=== PATIENT | female | born 1990 | race Caucasian/White ===

== ENCOUNTER 2017-10-30 08:15 | Inpatient (IN) | END 2017-11-01 13:10 | disposition home or self-care (01) | DRG 775 ==

== ENCOUNTER 2018-03-19 02:22 | Emergency (ER) | END 2018-03-19 04:15 | disposition home or self-care (01) ==

== ENCOUNTER 2018-03-20 20:45 | Inpatient (IN) | END 2018-03-26 17:00 | disposition home or self-care (01) | DRG 440 ==

== ENCOUNTER 2019-01-07 23:15 | Inpatient (IN) | payer OTHER ==
[~2019-01-07] VITALS: Ht 152.4 cm; Wt 86.2 kg
[~2019-01-07 23:15] MED LIST: FER325 PO; LEVO500T48 PO; ONDA4TAB14 PO; PNV1TABL43 PO
[2019-01-07] MEDS ORDERED: LACTATED RINGER'S 1,000 ML IV PRN (23:36)
[2019-01-07] MEDS ORDERED: LACTATED RINGER'S 1,000 ML IV SCH (23:36)
--- NOTE | 2019-01-07 23:46 | TRIAGE ---
OB Triage Datetime Report Generated by CPN: 01/07/2019 23:45 Datetime: 01/07/2019 23:41 Time of Arrival: 01/07/2019 23:06 Arrived By: Wheelchair Arrived From: Home Chief Complaint: UC'S Movement: Present Contractions: Regular Contractions: Q5MIN PER PT Rupture of Membranes: Denies Vaginal Bleeding: None Vaginal Discharge: Denies Recent Sexual Intercouse: Denies Abdominal Trauma: Not Applicable Patient Complaints: Contractions Time Provider Notified: 01/07/2019 23:34 Provider Notified: MARCIA Initial Plan: CEFM, SVE Datetime: 01/07/2019 23:31 Vaginal Exam Dilatation (cms): 4.5 Effacement (%): 80 Station: -2 Vaginal Bleeding: None Presentation 'A': Cephalic Datetime: 01/07/2019 23:30 Maternal Assessment Level of Consciousness: Fully Conscious DTR's/Clonus: DTRs 2+; No Clonus Headache: Denies Blurred Vision: No Respiratory Effort: Unlabored; Regular Rhythm; Equal Expansion Breath Sounds, Left: Clear and Equal Breath Sounds, Right: Clear and Equal Nausea/Vomiting: Denies RUQ Epigastric Pain: Denies Pain Assessment Pain Scale: 5 Pain Presence: Intermittent Pain Type: Contraction Pain Location: Abdomen; Back Pain Goal: 2 Pain Relief Measures: Comfort Measures
[2019-01-08] MEDS ORDERED: IBUPROFEN 600 MG TAB PO PRN
[2019-01-08] MEDS ORDERED: OXYTOCIN 30 UNITS/LR 500 ML IV SCH ×2
[2019-01-08] MEDS ORDERED: AMPICILLIN 2 GM/NS (PMX) 100 ML IV ONE
[2019-01-08] MEDS ORDERED: LIDOCAINE 1% (MPF) 30 ML INJ INJ PRN
[2019-01-08] MEDS ORDERED: BUTORPHANOL 2 MG INJ IV PRN
[2019-01-08] MEDS ORDERED: CALC600T24 PO (00:13)
[2019-01-08 01:37] VITALS: Ht 152.4 cm; Wt 86.2 kg
--- NOTE | 2019-01-08 02:25 | HP ---
Date/Time of Note Date/Time of Note DATE: 01/08/19 TIME: 02:21 OB - History Hx of Present Chief Complaint: contractions Estimated Due Date: January 20, 2019 : 4 Para: 3 Spontaneous : 0 Therapeutic : 0 Care: Other ( recordas not available) Ultrasounds: Other (ultrasound in L&D) Obstetrical Complications: None Medical Complications: None Other Concerns: limited care Past Family/Social History * PMHx unremarkable PSHx x2 FHx non contributory GBS Status: Unknown OB Admission Exam Physical Exam HEENT: WNL Heart: Rhythm Normal Lungs: Clear, Equal Abdomen: WNL Extremities: Normal Reflexes: Normal Cervical Dilatation: 5cm Effacement: 75% Station: -1 Membranes: Intact Heart Rate: 120's Accelerations: Accelerations Present Decelerations: No Decelerations Varibility: Moderate Last 72 hours Lab Results CBC & BMP 01/07/19 23:50 OB Assessment/Plan Reason for admission: active labor Plan: Expectant Management DALLAS BAE MD Jan 08, 2019 02:25
--- NOTE | 2019-01-08 02:27 | LDN ---
Date/Time of Note Date/Time of Note DATE: 01/08/19 TIME: 02:26 Delivery Summary Weeks of Gestation 38 weeks Placenta Delivered: Spontaneously Meconium: none Episiotomy: No Anesthesia type: None Estimated blood loss: 100 Sponge & Needle done & correct: Yes All needle counts correct: Yes Any foreign bodies felt in the: No Infant Delivery Information Sex Infant Sex: male Apgars 1 Minute: 8 5 Minute: 9 Suctioning Nose & mouth suctioned at elie: No Delee suction performed: No Umbilical Cord Umbilical cord with: 3 Vessels Cord presentations: nuchal cord Nuchal cord present X: 1 Cord Blood was obtained: Yes Mother & Baby Disposition Disposition Mom & Baby to Maternity; Good: Yes DALLAS BAE MD Jan 08, 2019 02:27
[2019-01-08] MEDS ORDERED: AMPICILLIN 1 GM/NS (PMX) 50 ML IV SCH (04:00)
[2019-01-08 05:00] VITALS: BP 132/75; PULSE 63; RESP 18
[2019-01-08] MEDS ORDERED: LACTATED RINGER'S 1,000 ML IV* SCH (05:12)
[2019-01-08] MEDS ORDERED: MISOPROSTOL 200 MCG TAB PR PRN ×2 (05:30)
[2019-01-08] MEDS ORDERED: OXYTOCIN 30 UNITS/LR 500 ML IV PRN ×2 (05:30)
[2019-01-08] MEDS ORDERED: CARBOPROST 250 MCG INJ IM PRN ×2 (05:30)
[2019-01-08] MEDS ORDERED: BENZOCAINE 20% 56 ML SPRAY TOP PRN (05:30)
[2019-01-08] MEDS ORDERED: ACETAMINOPHEN 325 MG TAB PO PRN (05:30)
[2019-01-08] MEDS ORDERED: DIBUCAINE 1% 30 GM OINT TOP PRN (05:30)
[2019-01-08] MEDS ORDERED: METHYLERGONOVINE 0.2 MG INJ IM PRN ×2 (05:30)
[2019-01-08] MEDS ORDERED: WITCH HAZEL/GLYCERIN PAD PR PRN (05:30)
[2019-01-08 07:45] VITALS: BP 115/68; PULSE 68; RESP 16
[2019-01-08] MEDS: SENNA/DOCUSATE NA (8.6MG/50MG) TAB PO SCH ×2 (08:23→21:20)
[2019-01-08] MEDS: HYDROCODONE/APAP (5/325) TAB PO PRN ×2 (08:23→21:20)
[2019-01-08 12:00] VITALS: BP 111/71; PULSE 65; RESP 16
[2019-01-08] MEDS: IBUPROFEN 600 MG TAB PO SCH ×2 (12:29→18:10)
[2019-01-08 20:00] VITALS: BP 127/74; PULSE 59; RESP 18
[2019-01-09] MEDS: IBUPROFEN 600 MG TAB PO SCH ×4 (00:32→18:00)
[2019-01-09 04:00] VITALS: BP 109/61; RESP 17
[2019-01-09 08:30] VITALS: BP 107/79; PULSE 63; RESP 18
[2019-01-09] MEDS: SENNA/DOCUSATE NA (8.6MG/50MG) TAB PO SCH ×2 (09:00→21:00)
--- NOTE | 2019-01-09 09:47 | DS ---
Date/Time of Note Date/Time of Note home today or next day DATE: 01/09/19 TIME: 09:42 Obstetrical Discharge Record Final Diagnosis Final Diagnosis: Term delivered Other Final Diagnosis S/P vaginal delivery Vaginal Delivery Obstetrical Delivery: Spontaneous Condition on Discharge Physical Assessment Last Vitals: see nurses notes Voiding: Yes Bowel Movement: Yes Breast: Soft, non-tender, Filling Fundus: Firm Abdomen and Incision: abdomen is soft , BS are present Episiotomy: perineum is clean Calf Tenderness: No Patient Condition: Good AMAN MEREDITH MD Jan 09, 2019 09:47
--- NOTE | 2019-01-09 09:53 | PD.PPDC ---
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
[2019-01-09] MEDS ORDERED: IBUP-1542 PO (09:54)
[2019-01-09 16:00] VITALS: BP 119/82; PULSE 69; RESP 16
[2019-01-09 19:45] VITALS: BP 116/78; PULSE 63; RESP 20
[2019-01-10] MEDS: IBUPROFEN 600 MG TAB PO SCH ×3 (00:07→12:00)
[2019-01-10 03:45] VITALS: BP 122/68; PULSE 75; RESP 18
[2019-01-10 07:30] VITALS: BP 106/63; PULSE 71
[2019-01-10] MEDS ORDERED: DIPHTH/TET/ACEL PERTUSS (ADULT) 0.5 ML VIAL IM* ONE (09:00)
[2019-01-10] MEDS: SENNA/DOCUSATE NA (8.6MG/50MG) TAB PO SCH (09:00)
--- NOTE | 2019-01-11 15:15 | DELSUM ---
Delivery Summary A-C Datetime Report Generated by CPN: 01/11/2019 15:14 DELIVERY PERSONNEL Buffing Wheel Raker: Cheyenne Nayeli MATERNAL INFORMATION Delivery Anesthesia: None Medications in Delivery: Pitocin 30 units in LR Delivery QBL (ml): 162 Placenta Cultured: No Maternal Complications: Precip Labor <3hrs; Other Other Maternal Complications: Late care. LABOR SUMMARY EDC: 01/20/2019 00:00 No. Babies in Womb: 1 Attempted: Yes Labor Anesthesia: None LABOR INFORMATION Reason for Induction: Not Applicable Onset of Labor: 01/07/2019 19:00 Complete Dilatation: 01/08/2019 00:51 Oxytocin: N/A Group B Beta Strep: Done, Result Unknown Antibiotics # of Doses: 1 Antibiotics Time of Last Dose: 01/08/2019 00:00 Steroids Given: None Reason Steroids Not Administered: Not Applicable MEMBRANES Membranes Rupture Method: Spontaneous Rupture of Membranes: 01/08/2019 00:45 Length of Rupture (hr): 0.23 Amniotic Fluid Color: Clear Amniotic Fluid Amount: Moderate Amniotic Fluid Odor: None STAGES OF LABOR Stage 1 hr: 5 Stage 1 min: 51 Stage 2 hr: 0 Stage 2 min: 8 Stage 3 hr: 0 Stage 3 min: 3 Total Time in Labor hr: 6 Total Time in Labor min: 2 VAGINAL DELIVERY Episiotomy: None Laceration Extension: N/A Laceration Type: None Laceration Repair: Not Applicable Initial Vag Sponge Count: 10 Final Vag Sponge Count: 10 Initial Vag Sharps Count: 1 Final Vag Sharps Count: 1 Sponge Count Correct: Yes Sharps Count Correct: Yes BABY A INFORMATION Infant Delivery Date/Time: 01/08/2019 00:59 Method of Delivery: Vaginal Born in Route : No : Successful Forceps: N/A Vacuum Extraction: N/A Shoulder Dystocia : No SHOULDER DYSTOCIA BABY A Delivery Date/Time: 01/08/2019 00:59 PRESENTATION/POSITION BABY A Presentation: Cephalic Cephalic Presentation: Vertex Breech Presentation: N/A PLACENTA INFORMATION BABY A Placenta Delivery Time : 01/08/2019 01:02 Placenta Method of Delivery: Expressed Placenta Status: Delivered INFANT INFORMATION BABY A Gestational Age at Delivery: 38.2 Gestational Status: Early Term- 37- 38.6 Weeks Outcome : Liveborn Infant Condition : Stable Infant Sex: Male IDENTIFICATION/MEDS BABY A ID Band Number: [id number] ID Band Location: Right Leg; Left Arm Sensor Applied: Yes Sensor Number: [id number] Sensor Location : Cord Clamp Vitamin K Given : Not Given Erythromycin Given: Not Given WEIGHT/LENGTH BABY A Birthweight (gm): 3290 Weight (lb): 7 Infant Weight (oz): 4 Infant Length (in): 19.50 Infant Length (cm): 49.53 CORD INFORMATION BABY A No. Cord Vessels: 3 Nuchal Cord : N/A Nuchal Cord- Other: Body Nuchal Cord Blood Taken: Yes Infant Suction: Mouth; Nose
== END 2019-01-10 15:14 | disposition home or self-care (01) | DRG 807 ==
LOC: OBT 23:15 → L-D 23:15 → OBT 23:30 → L-D 23:30 → PP1 01-08 16:23
PROVIDERS: ADMIT Obstetrics & Gynecology; ATTEND Obstetrics & Gynecology
PROC: 4A1HXCZ Monitoring of Products of Conception, Cardiac Rate, External Approach (ICD-10-PCS; 2019-01-07)
PROC: 10E0XZZ Delivery of Products of Conception, External Approach (ICD-10-PCS; principal; 2019-01-08)
DX: O69.81X0 Labor and delivery complicated by cord around neck, without compression, not applicable or unspecified (principal); Z37.0 Single live birth; O34.219 Maternal care for unspecified type scar from previous cesarean delivery; Z3A.38 38 weeks gestation of pregnancy
CPT/HCPCS: 76815; 80307; 85025; 85610; 85730; 86592; 86850; 86900; 86901; 87340; 99464; G0463; J0290; J2590; J7120

== ENCOUNTER 2019-02-08 13:33 | Emergency (ER) | payer OTHER ==
[~2019-02-08] VITALS: Ht 152.4 cm; Wt 78.5 kg
[~2019-02-08 13:33] MED LIST changes: +CALC600T24 PO; +IBUP-1542 PO; -LEVO500T48 PO; -ONDA4TAB14 PO
[2019-02-08 13:35] VITALS: BP 149/93; PULSE 103; RESP 19; Ht 152.4 cm; Wt 78.5 kg
[2019-02-08] MEDS ORDERED: LORAZEPAM 2 MG INJ IV STA (16:10)
--- NOTE | 2019-02-08 18:30 | ERD ---
ER Documentation Chief Complaint Chief Complaint seizure episodes x 2 today , hx HPI Patient is a 28-year-old female with seizures who presents with a seizure. Please note the history and physical exam is limited secondary to the patient's recall of the event. The patient had a seizure 6 years ago. She was sleeping today and was witnessed by her boyfriend to be shaking all over. It was unknown how long the seizure lasted. She complains of headache. She does not drive. Upon review of old medical records the patient has had multiple visits to the ER for various complaints. She does not currently have a primary doctor. ROS All systems reviewed and are negative except as per history of present illness. Medications Home Meds Discontinued Reported Medications Calcium Carbonate* (Calcium Carbonate*) 600 MG Ca Tab, 600 MG PO, TAB 01/08/19 Ferrous Sulfate* (Ferrous Sulfate*) 325 Mg Tabec, 325 MG PO DAILY, TAB 01/28/15 Vit/Fe Fumarate/Fa* ( Vitamin Tablet*) 1 Tab Tablet, 1 TAB PO DAILY, TAB 01/28/15 Discontinued Scripts Ibuprofen* (Ibuprofen*) 600 Mg Tablet, 600 MG PO Q6, #60 TAB 0 Refills Prov:AMAN MEREDITH MD 01/09/19 Allergies Allergies: Coded Allergies: No Known Allergy (Unverified , 02/08/19) PMhx/Soc History of Surgery: Yes ( X2) Anesthesia Reaction: No Hx Neurological Disorder: No Hx Respiratory Disorders: No Hx Cardiac Disorders: No Hx Psychiatric Problems: No Hx Miscellaneous Medical Probl: Yes (ECLAMPSIA W/ 6 YEARS AGO) Hx Alcohol Use: No Hx Substance Use: No Hx Tobacco Use: No Smoking Status: Never smoker FmHx Family History: diabetes Physical Exam Vitals Vital Signs Date Temp Pulse Resp B/P (MAP) Pulse Ox O2 O2 Flow FiO2 Time Delivery Rate 02/08/19 99.6 103 19 149/93 95 13:35 (111) Physical Exam Const: No acute distress Head: Atraumatic Eyes: Normal Conjunctiva ENT: Normal External Ears, Nose and Mouth. Neck: Full range of motion. No meningismus. Resp: Clear to auscultation bilaterally Cardio: Regular rate and rhythm, no murmurs Abd: Soft, non tender, non distended. Normal bowel sounds Skin: No petechiae or rashes Back: No midline or flank tenderness Ext: No cyanosis, or edema Neur: Awake and alert, no seizure activity, moving all 4 extremities Psych: Normal Mood and Affect Result Diagram: 02/08/19 1633 02/08/19 1633 Results 24 hrs Laboratory Tests Test 02/08/19 16:33 White Blood Count 12.3 10^3/ul Red Blood Count 4.98 10^6/ul Hemoglobin 12.9 g/dl Hematocrit 40.6 % Mean Corpuscular Volume 81.5 fl Mean Corpuscular Hemoglobin 25.9 pg Mean Corpuscular Hemoglobin Concent 31.8 g/dl Red Cell Distribution Width 17.2 % Platelet Count 234 10^3/UL Mean Platelet Volume 11.7 fl Immature Granulocytes % 0.200 % Neutrophils % 83.2 % Lymphocytes % 13.1 % Monocytes % 3.0 % Eosinophils % 0.1 % Basophils % 0.4 % Nucleated Red Blood Cells % 0.0 /100WBC Immature Granulocytes # 0.030 10^3/ul Neutrophils # 10.2 10^3/ul Lymphocytes # 1.6 10^3/ul Monocytes # 0.4 10^3/ul Eosinophils # 0.0 10^3/ul Basophils # 0.1 10^3/ul Nucleated Red Blood Cells # 0.0 10^3/ul Sodium Level 139 mmol/L Potassium Level 3.9 mmol/L Chloride Level 104 mmol/L Carbon Dioxide Level 27 mmol/L Anion Gap 8 Blood Urea Nitrogen 9 mg/dl Creatinine 0.61 mg/dl Est Glomerular Filtrat Rate mL/min > 60 mL/min Glucose Level 108 mg/dl Calcium Level 9.5 mg/dl Current Medications Medications Dose Sig/Kieran Start Time Status Last (Trade) Ordered Route PRN Stop Time Admin Dose Reason Admin Lorazepam 1 mg ONCE STAT 02/08/19 DC 02/08/19 (Ativan) IV 16:10 17:26 02/08/19 16:11 Procedures/MDM Patient is a 28-year-old female with a history of seizures who presents with seizure. The patient was given Ativan to prevent further seizures. Laboratory studies were basically normal. I believe the risk of radiation outweigh the benefits of a CT scan of the brain. The patient will be discharged but will need to follow-up closely with a primary doctor within 24 to 48 hours. I have given a list of the local clinics as the patient does not currently have a primary doctor. She can return for any worsening symptoms. She is not . Departure Diagnosis: Primary Impression: Seizure Condition: Fair Patient Instructions: Seizure, Recurrent [Adult] Referrals: [facility] YOU HAVE RECEIVED A MEDICAL SCREENING EXAM AND THE RESULTS INDICATE THAT YOU DO NOT HAVE A CONDITION THAT REQUIRES URGENT TREATMENT IN THE EMERGENCY DEPARTMENT. FURTHER EVALUATION AND TREATMENT OF YOUR CONDITION CAN WAIT UNTIL YOU ARE SEEN IN YOUR DOCTORS OFFICE WITHIN THE NEXT 1-2 DAYS. IT IS YOUR RESPONSIBILITY TO MAKE AN APPOINTMENT FOR FOLOW-UP CARE. IF YOU HAVE A PRIMARY DOCTOR --you should call your primary doctor and schedule an appointment IF YOU DO NOT HAVE A PRIMARY DOCTOR YOU CAN CALL OUR PHYSICIAN REFERRAL HOTLINE AT IF YOU CAN NOT AFFORD TO SEE A PHYSICIAN YOU CAN CHOSE FROM THE FOLLOWING [facility] [address] [facility] [facility] [address] [facility] [facility] [address] [facility] [address] [facility]. [facility] [address] [facility]. [facility]. [address] Additional Instructions: Call your primary care doctor TOMORROW for an appointment during the next 1-2 days.See the doctor sooner or return here if your condition worsens before your appointment time. THAIS CHEN MD February 08, 2019 18:30
== END 2019-02-08 18:20 | disposition home or self-care (01) ==
LOC: E/R 13:33
DX: R56.9 Unspecified convulsions (principal); R40.2142 Coma scale, eyes open, spontaneous, at arrival to emergency department; R40.2362 Coma scale, best motor response, obeys commands, at arrival to emergency department; R40.2252 Coma scale, best verbal response, oriented, at arrival to emergency department
CPT/HCPCS: 80048; 85025; J2060; 36415; 96374

== ENCOUNTER 2019-02-08 22:24 | Inpatient (IN) | payer OTHER ==
[~2019-02-08] VITALS: Ht 152.4 cm; Wt 79.5 kg
[2019-02-08] MEDS ORDERED: LEVETIRACETAM 1000 MG (PMX) 100 ML IVPB STA (23:00)
[2019-02-08] MEDS ORDERED: ACETAMINOPHEN 325 MG TAB PO PRN ×2 (23:30)
[2019-02-08] MEDS ORDERED: ONDANSETRON 4 MG INJ IV PRN ×2 (23:30)
[2019-02-08] MEDS ORDERED: BISACODYL (EC) 5 MG TAB PO PRN (23:30)
[2019-02-08] MEDS ORDERED: LORAZEPAM 2 MG INJ IV PRN (23:30)
[2019-02-08] MEDS ORDERED: DOCUSATE SODIUM 100 MG CAP PO PRN (23:30)
--- NOTE | 2019-02-09 00:01 | ERD ---
ER Documentation Chief Complaint Chief Complaint d/c from ED c/o seizure while sleeping again HPI Patient is a 28-year-old female with seizures who presents with multiple seizures today. The patient had her fourth baby 1 month ago. She had no preeclampsia or eclampsia with that . However she had multiple seizures today. I saw her earlier for seizures in the emergency department. She says that she used to be on Keppra. She does not currently have a primary doctor. ROS All systems reviewed and are negative except as per history of present illness. Medications Home Meds Discontinued Reported Medications Calcium Carbonate* (Calcium Carbonate*) 600 MG Ca Tab, 600 MG PO, TAB 01/08/19 Ferrous Sulfate* (Ferrous Sulfate*) 325 Mg Tabec, 325 MG PO DAILY, TAB 01/28/15 Vit/Fe Fumarate/Fa* ( Vitamin Tablet*) 1 Tab Tablet, 1 TAB PO DAILY, TAB 01/28/15 Discontinued Scripts Ibuprofen* (Ibuprofen*) 600 Mg Tablet, 600 MG PO Q6, #60 TAB 0 Refills Prov:AMAN MEREDITH MD 01/09/19 Allergies Allergies: Coded Allergies: No Known Allergy (Unverified , 02/08/19) PMhx/Soc History of Surgery: Yes ( X2) Anesthesia Reaction: No Hx Neurological Disorder: No Hx Respiratory Disorders: No Hx Cardiac Disorders: No Hx Psychiatric Problems: No Hx Miscellaneous Medical Probl: Yes (SEIZURES, ECLAMPSIA W/ 6 YEARS AGO) Hx Alcohol Use: No Hx Substance Use: No Hx Tobacco Use: No Smoking Status: Never smoker FmHx Family History: diabetes Physical Exam Vitals Vital Signs Date Temp Pulse Resp B/P (MAP) Pulse Ox O2 O2 Flow FiO2 Time Delivery Rate 02/08/19 98.3 72 20 123/86 99 22:50 (98) Physical Exam Const: No acute distress Head: Atraumatic Eyes: Normal Conjunctiva ENT: Normal External Ears, Nose and Mouth. Neck: Full range of motion. No meningismus. Resp: Clear to auscultation bilaterally Cardio: Regular rate and rhythm, no murmurs Abd: Soft, non tender, non distended. Normal bowel sounds Skin: No petechiae or rashes Back: No midline or flank tenderness Ext: No leg edema bilaterally Neur: Awake and alert Psych: Normal Mood and Affect Result Diagram: 02/08/19 2307 02/08/19 2307 Results 24 hrs Laboratory Tests Test 02/08/19 23:07 White Blood Count 9.7 10^3/ul Red Blood Count 4.66 10^6/ul Hemoglobin 12.0 g/dl Hematocrit 38.0 % Mean Corpuscular Volume 81.5 fl Mean Corpuscular Hemoglobin 25.8 pg Mean Corpuscular Hemoglobin Concent 31.6 g/dl Red Cell Distribution Width 17.3 % Platelet Count 243 10^3/UL Mean Platelet Volume 11.7 fl Immature Granulocytes % 0.200 % Neutrophils % 59.9 % Lymphocytes % 31.3 % Monocytes % 7.0 % Eosinophils % 1.1 % Basophils % 0.5 % Nucleated Red Blood Cells % 0.0 /100WBC Immature Granulocytes # 0.020 10^3/ul Neutrophils # 5.8 10^3/ul Lymphocytes # 3.0 10^3/ul Monocytes # 0.7 10^3/ul Eosinophils # 0.1 10^3/ul Basophils # 0.1 10^3/ul Nucleated Red Blood Cells # 0.0 10^3/ul Sodium Level 139 mmol/L Potassium Level 3.5 mmol/L Chloride Level 105 mmol/L Carbon Dioxide Level 27 mmol/L Anion Gap 7 Blood Urea Nitrogen 14 mg/dl Creatinine 0.83 mg/dl Est Glomerular Filtrat Rate mL/min > 60 mL/min Glucose Level 103 mg/dl Calcium Level 9.2 mg/dl Total Bilirubin 1.0 mg/dl Direct Bilirubin 0.00 mg/dl Indirect Bilirubin 1.0 mg/dl Aspartate Amino Transf (AST/SGOT) 20 IU/L Alanine Aminotransferase (ALT/SGPT) 14 IU/L Alkaline Phosphatase 80 IU/L Total Protein 7.6 g/dl Albumin 4.2 g/dl Globulin 3.40 g/dl Albumin/Globulin Ratio 1.23 Current Medications Medications Dose Sig/Kieran Start Time Status Last (Trade) Ordered Route PRN Stop Time Admin Dose Reason Admin 100 ml @ ONCE STAT 02/08/19 DC 02/08/19 Levetiracetam 400 mls/hr IVPB 23:00 23:11 02/08/19 23:14 Ondansetron 4 mg BRIDGE ORDER 02/08/19 Cancel HCl (Zofran PRN IV 23:30 Inj) NAUSEA/VOMITI 02/09/19 23:29 NG 650 mg ER BRIDGE 02/08/19 Cancel Acetaminophen PRN PO 23:30 (Tylenol .MILD PAIN 02/09/19 23:29 Tab) 1-3 OR TEMP IV Flush 3 ml PER 02/08/19 (NS 3 ml) PROTOCOL IV 23:30 Ondansetron 4 mg Q6H PRN 02/08/19 HCl (Zofran IV 23:30 Inj) NAUSEA/VOMITI NG 650 mg Q6H PRN 02/08/19 Acetaminophen PO .PAIN 1-3 23:30 (Tylenol OR TEMP Tab) Docusate 100 mg Q12H PRN 02/08/19 Sodium PO 23:30 (Colace) .CONSTIPATION Bisacodyl 5 mg DAILY PRN 02/08/19 (Dulcolax) PO 23:30 .CONSTIPATION Lorazepam 1 mg Q1H PRN 02/08/19 (Ativan) IV SEIZURES 23:30 500 mg BID PO 02/09/19 Levetiracetam 09:00 (Keppra) Procedures/MDM Patient is a 28-year-old female presents with 6 seizures today she reports. The patient has normal blood pressure here in the emergency department. Platelets are normal and LFTs are normal. I doubt HELLP syndrome, preeclampsia, or eclampsia. She used to be on Keppra and therefore I will give 1 g Keppra IV. I do believe she has likely underlying epilepsy and will need to be on a controlling medication. She will be admitted to the care of Dr. Grant from the panel team to a medical surgical inpatient bed. I spoke with Dr. Young from [facility] for consultation per Dr. Grant's request. Departure Diagnosis: Primary Impression: Seizures Condition: THAIS Lemos MD February 09, 2019 00:01
--- NOTE | 2019-02-09 03:05 | HP ---
Date/Time of Note Date/Time of Note DATE: 02/09/19 TIME: 03:04 Assessment/Plan VTE Prophylaxis SCD applied (from Nsg): Yes Pharmacological prophylaxis: NA/contraindicated Pharm contraindication: low risk/ambulating Lines/Catheters IV Catheter Type (from Nrsg): Saline Lock Assessment/Plan Hospital Course This is a 28-year-old female being admitted to the [facility] floor for: 1 recurrent seizures: Possibly secondary to history of eclampsia though during her recent she was not told she had it. Versus organic brain pathology versus marijuana use. At the current however okay a CT of the brain without contrast stat. I will start her on Keppra 1000 mg IV twice daily. We will check a Keppra level in the a.m. Seizure precautions. PRN Ativan for breakthrough seizure. Eventual MRI of the brain, EEG. 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 Will consult neurology . We will check a urine drug screen, urinalysis 2 history of CVA: Patient has regained all of her functioning since that CVA. She does though have mild right sided eyelid ptosis. 3. History of seizures: Secondary to preeclampsia/eclampsia in the past pregnancies. obgyn has been consulted in regards to this. 4 marijuana use: We will need to discuss with neurology whether this could be a reason for the seizures. 5 DVT GI prophylaxis: SCDs, no GI prophylaxis indicated Further treatment strategy will be implemented as per the clinical course Result Diagram: 02/08/19230602/08/19 2307 Results 24hrs Laboratory Tests Test 02/08/19 23:07 White Blood Count 9.7 # Red Blood Count 4.66 Hemoglobin 12.0 Hematocrit 38.0 Mean Corpuscular Volume 81.5 L Mean Corpuscular Hemoglobin 25.8 L Mean Corpuscular Hemoglobin Concent 31.6 L Red Cell Distribution Width 17.3 H Platelet Count 243 Mean Platelet Volume 11.7 H Immature Granulocytes % 0.200 Neutrophils % 59.9 Lymphocytes % 31.3 Monocytes % 7.0 Eosinophils % 1.1 Basophils % 0.5 Nucleated Red Blood Cells % 0.0 Immature Granulocytes # 0.020 Neutrophils # 5.8 Lymphocytes # 3.0 H Monocytes # 0.7 Eosinophils # 0.1 Basophils # 0.1 Nucleated Red Blood Cells # 0.0 Sodium Level 139 Potassium Level 3.5 Chloride Level 105 Carbon Dioxide Level 27 Anion Gap 7 Blood Urea Nitrogen 14 Creatinine 0.83 Est Glomerular Filtrat Rate mL/min > 60 Glucose Level 103 Calcium Level 9.2 Total Bilirubin 1.0 Direct Bilirubin 0.00 Indirect Bilirubin 1.0 Aspartate Amino Transf (AST/SGOT) 20 Alanine Aminotransferase (ALT/SGPT) 14 Alkaline Phosphatase 80 Total Protein 7.6 Albumin 4.2 Globulin 3.40 H Albumin/Globulin Ratio 1.23 HPI/ROS Admit Date/Time Admit Date/Time Hx of Present Illness cc: recurrent seizures This is a 28-year-old female with a past medical 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 Patient presents with her . Patient reported that in the morning at around 6:00 she had an initial seizure followed by another one at 11 AM. She had total of 4 in the day and came to the emergency department. She was given Ativan and discharged. Patient returned home and had an additional 2 seizures with convulsions and therefore she returned to the emergency department. She does have a history of having seizures in the past approximately 6 years ago due to eclampsia during . She was on Keppra 1000 mg twice daily in the past. She had not been taking it over the recent past as she was and just recently delivered a child approximately 1 month ago. Patient is a daily marijuana smoker, she did not smoke at all yesterday. Patient does have a history of a stroke that resulted in left-sided weakness however all of her function has since then returned. Her stroke was in 2011. She does have a slight eyelid ptosis on the right compared to the left this is chronic. She is currently not breast- feeding. She does report a headache at the current time. did report that when the patient had seizure she also did have a postictal period as well as urinary incontinence. Allergies: NKDA Medications: None ROS Const: As per HPI Eyes : No pain discharge or redness or change in visual acuity ENT: No pain, sore throat, congestion, congestion, dysphagia or discharge Respiratory: No shortness of breath, cough, sputum, wheezing, or pleuritic pain Cardiovascular: No chest pain, palpitation, PND, or edema GI : no change in appetite, abdominal pain, nausea, vomiting, diarrhea, constipation, or change in the color his stool Genitourinary: No dysuria, hematuria, flank pain , discharge or CVA tenderness Musculoskeletal: No joint pain, back pain, neck pain, restricted range of motion in neck or joints Skin: No rash, bruising or hives Neuro: As per HPI Endocrine: No polyuria, polydipsia, temperature intolerance Psych: No hallucination, depression, anxiety or suicidal ideation PMH/Family/Social Past Medical History CVA in 2012, history of eclampsia during previous , history of seizures secondary to eclampsia Medications Current Medications IV Flush (NS 3 ml) 3 ml PER PROTOCOL IV ; Start 02/08/19 at 23:30 Ondansetron HCl (Zofran Inj) 4 mg Q6H PRN IV NAUSEA/VOMITING; Start 02/08/19 at 23:30 Acetaminophen (Tylenol Tab) 650 mg Q6H PRN PO .PAIN 1-3 OR TEMP; Start 02/08/19 at 23:30 Docusate Sodium (Colace) 100 mg Q12H PRN PO .CONSTIPATION; Start 02/08/19 at 23:30 Bisacodyl (Dulcolax) 5 mg DAILY PRN PO .CONSTIPATION; Start 02/08/19 at 23:30 Lorazepam (Ativan) 1 mg Q1H PRN IV SEIZURES; Start 02/08/19 at 23:30 Levetiracetam (Keppra) 500 mg BID PO ; Start 02/09/19 at 09:00 Coded Allergies: No Known Allergy (Unverified , 02/08/19) Past Surgical History x4 Family History Significant Family History: no pertinent family hx Social History Alcohol Use: none Smoking Status: Never smoker Drug Use: none Exam/Review of Systems Vital Signs Vitals Vital Signs Date Temp Pulse Resp B/P (MAP) Pulse Ox O2 O2 Flow FiO2 Time Delivery Rate 02/09/19 67 18 103/74 100 Room Air 02:31 (84) 02/08/19 98.3 22:50 Exam Exam General: Patient is a pleasant female currently lying in bed in no acute distress HEENT: Atraumatic, normocephalic. Eyelid asymmetry noted of the eyelids, with a right-sided ptosis which is chronic, Neck: Supple with full range of motion. No rigidity or meningismus Chest: Nontender Lungs: Clear to auscultation bilaterally no crackles rales or wheezing Heart: Normal S1-S2, Regular rhythm and rate. No murmur, S3, or S4 Abdomen: Soft , nontender, nondistended , bowel sounds are present. No guarding no rebound tenderness , No masses or organomegaly. Extremities: Normal to inspection, no edema no cyanosis Neurologic: Normal mental status, speech normal, cranial nerves II through XII are intact, motor and sensory are intact, no focal weakness RETA SPARROW February 09, 2019 03:04
--- NOTE | 2019-02-09 05:11 | CONS ---
Assessment/Plan Assessment/Plan Assessment/Plan (Daily) A status seizure activities not due to recent Hx of ecclampsisa with ist delivered at 33weeks P release from our service Consultation Date/Type/Reason Admit Date/Time Date of Consultation: February 08, 2019 Type of Consult OB Reason for Consultation seizure activities poss 2ndary to pregnanacy Requesting Provider: YOVANI HARVEY Date/Time of Note DATE: 02/09/19 TIME: 04:18 Hx of Present Illness 28y.o x2C/s and x2 presented ED second time on 02/08/19 after she was discharged from ER after emergency measurement for seizure activities PER family member she had x 3 AM on 02/08/19 and at [facility] had another activity with head twisted to side and whole body had jerky movement. no tongue bite noted or no foamy mouth. In 2011jun 06 she underwent to emergency c/s at 33weeks due to convulsion ,due to eclampsia f/b Rt hemiparesis/hemiplegia? which required rehabilitation and fully recovered.,of motion several month after the ,she experienced seizure activities which brought her to ED her at [facility] in early 2012,and placed on keppra. but she discontinue medication after 2nd delivery due to breast feeding. no seizure activities up until today without any medications.Had . post ictal pulsating headache and vomit never had neurologic evaluation headache vomit Constitutional: no complaints Eyes: no complaints ENT: no complaints Respiratory: no complaints Cardiovascular: no complaints Gastrointestinal: no complaints Genitourinary: no complaints Musculoskeletal: no complaints Skin: no complaints Neurologic: headache, seizure Endocrine: no complaints Lymphatic: adenopathy Psychological: no complaints Immunologic: no complaints Past Medical History Medical History: no pertinent history, pancreatitis Home Meds Discontinued Reported Medications Calcium Carbonate* (Calcium Carbonate*) 600 MG Ca Tab, 600 MG PO, TAB 01/08/19 Ferrous Sulfate* (Ferrous Sulfate*) 325 Mg Tabec, 325 MG PO DAILY, TAB 01/28/15 Vit/Fe Fumarate/Fa* ( Vitamin Tablet*) 1 Tab Tablet, 1 TAB PO DAILY, TAB 01/28/15 Discontinued Scripts Ibuprofen* (Ibuprofen*) 600 Mg Tablet, 600 MG PO Q6, #60 TAB 0 Refills Prov:AMAN MEREDITH MD 01/09/19 Medications Current Medications IV Flush (NS 3 ml) 3 ml PER PROTOCOL IV ; Start 02/08/19 at 23:30 Ondansetron HCl (Zofran Inj) 4 mg Q6H PRN IV NAUSEA/VOMITING; Start 02/08/19 at 23:30 Acetaminophen (Tylenol Tab) 650 mg Q6H PRN PO .PAIN 1-3 OR TEMP; Start 02/08/19 at 23:30 Docusate Sodium (Colace) 100 mg Q12H PRN PO .CONSTIPATION; Start 02/08/19 at 23:30 Bisacodyl (Dulcolax) 5 mg DAILY PRN PO .CONSTIPATION; Start 02/08/19 at 23:30 Lorazepam (Ativan) 1 mg Q1H PRN IV SEIZURES; Start 02/08/19 at 23:30 Levetiracetam (Keppra) 1,000 mg BID PO ; Start 02/09/19 at 09:00 Allergies: Coded Allergies: No Known Allergy (Unverified , 02/08/19) Past Surgical History x2 c/s and x2 Family History Significant Family History: no pertinent family hx Social History Alcohol Use: none Smoking Status: Never smoker Drug Use: none Exam/Review of Systems Exam Vitals Vital Signs Date Temp Pulse Resp B/P (MAP) Pulse Ox O2 O2 Flow FiO2 Time Delivery Rate 02/09/19 67 20 104/68 99 Room Air 04:03 (80) 02/08/19 98.3 22:50 Constitutional: alert, oriented, well developed Psych: no complaints Head: normocephalic Eyes: nl conjunctiva ENMT: nl external ears & nose Neck: non-tender Respiratory: clear to auscultation Cardiovascular: regular rate and rhythm Gastrointestinal: soft, nl liver, spleen, non-tender Genitourinary - Female: nl adnexae Musculoskeletal: nl extremities to inspection Extremities: normal pulses Neurological: GLOVE STITCHER II-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 intact, nl mental status, nl speech, nl strength Skin: nl turgor; No rash or lesions Lymph: nl lymph nodes Results Result Diagram: 02/08/19230602/08/192306 Results 24hrs Laboratory Tests Test 02/08/19 23:07 White Blood Count 9.7 # Red Blood Count 4.66 Hemoglobin 12.0 Hematocrit 38.0 Mean Corpuscular Volume 81.5 L Mean Corpuscular Hemoglobin 25.8 L Mean Corpuscular Hemoglobin Concent 31.6 L Red Cell Distribution Width 17.3 H Platelet Count 243 Mean Platelet Volume 11.7 H Immature Granulocytes % 0.200 Neutrophils % 59.9 Lymphocytes % 31.3 Monocytes % 7.0 Eosinophils % 1.1 Basophils % 0.5 Nucleated Red Blood Cells % 0.0 Immature Granulocytes # 0.020 Neutrophils # 5.8 Lymphocytes # 3.0 H Monocytes # 0.7 Eosinophils # 0.1 Basophils # 0.1 Nucleated Red Blood Cells # 0.0 Sodium Level 139 Potassium Level 3.5 Chloride Level 105 Carbon Dioxide Level 27 Anion Gap 7 Blood Urea Nitrogen 14 Creatinine 0.83 Est Glomerular Filtrat Rate mL/min > 60 Glucose Level 103 Calcium Level 9.2 Total Bilirubin 1.0 Direct Bilirubin 0.00 Indirect Bilirubin 1.0 Aspartate Amino Transf (AST/SGOT) 20 Alanine Aminotransferase (ALT/SGPT) 14 Alkaline Phosphatase 80 Total Protein 7.6 Albumin 4.2 Globulin 3.40 H Albumin/Globulin Ratio 1.23 Medications Medication Current Medications IV Flush (NS 3 ml) 3 ml PER PROTOCOL IV ; Start 02/08/19 at 23:30 Ondansetron HCl (Zofran Inj) 4 mg Q6H PRN IV NAUSEA/VOMITING; Start 02/08/19 at 23:30 Acetaminophen (Tylenol Tab) 650 mg Q6H PRN PO .PAIN 1-3 OR TEMP; Start 02/08/19 at 23:30 Docusate Sodium (Colace) 100 mg Q12H PRN PO .CONSTIPATION; Start 02/08/19 at 23:30 Bisacodyl (Dulcolax) 5 mg DAILY PRN PO .CONSTIPATION; Start 02/08/19 at 23:30 Lorazepam (Ativan) 1 mg Q1H PRN IV SEIZURES; Start 02/08/19 at 23:30 Levetiracetam (Keppra) 1,000 mg BID PO ; Start 02/09/19 at 09:00 PAM MARRERO MD February 09, 2019 05:10
[2019-02-09 07:35] VITALS: BP 102/64; PULSE 63; RESP 20
[2019-02-09 07:51] VITALS: BP 107/68; PULSE 57; RESP 18
[2019-02-09] MEDS ORDERED: LEVETIRACETAM 500 MG TAB PO SCH ×2 (09:00)
--- NOTE | 2019-02-09 10:58 | QN ---
Documentation Comment This a 28-year-old female with a history of seizure disorders who has been taken off treatment after childbirth, CVA, marijuana use, presented with seizure activities. She did not have any witnessed seizure activity since admission. Her labs and vital signs stable. Patient does seem like having a UTI from her UA. We will obtain a urine culture to this specimen. Will empirically treat with ceftriaxone. Pending neurology evaluation. In terms of her CVA history in 2011 with childbirth, she was never placed on aspirin or statin regimen. Consider aspirin/statin in light of previous CVA under neurology discretion. Patient was seen in collaboration with Dr. Lewis. HELEN MARTINEZ NP February 09, 2019 10:58
[2019-02-09] MEDS: CEFTRIAXONE 1 GM/50 ML (PMX) 50 ML IVPB SCH (11:44)
--- NOTE | 2019-02-09 13:42 | CONSI ---
Assessment/Plan Assessment/Plan Assessment/Plan (Recall) 28 yo F with hx of CVA c/b epilepsy, eclampsia and other comorbidities who presents for evaluation of breakthrough seizures... for which neurology is consulted. She endorses medication noncompliance. She additionally is noted to have a UTI, a likely contributor. MRI brain is notable for L frontal encephalomalacia. UDS + marijuana P: Await EEG Decrease keppra to 500mg BID for seizure ppx. Ativan IV PRN seizure > 5 min or for cluster Cont UTI and other medical management per primary Will follow clinically, to recommend neurologic studies, as necessary Consultation Date/Type/Reason Admit Date/Time Type of Consult Neurology Reason for Consultation seizures Requesting Provider: RETA SPARROW Date/Time of Note DATE: 02/09/19 TIME: 13:36 Hx of Present Illness 28 yo F with hx of seizures, CVA, eclampsia, pancreatitis who presented to the ED for evaluation of seizures. History was obtained from pt, HCP and chart review. She reportedly was witnessed to have 3 seizure episodes yesterday with jerking head movements and generalized convulsion. In May 2012, she had eclampsia during her and at 33weeks, had to undergo an emergency c/s d/t seizure activity. It is unclear if she was started on medications at that time. Later on, in early 2012, she had further seizure episodes for which she presented to [facility] and was started on Keppra. Following the delivery of her second child, she stopped taking the medication as she was perry stfeeding. She has not restarted Keppra or followed up with a neurologist. She reportedly has not had any seizure activity until today. She currently endorses generalized weakness and lethargy. It is additionally elsewhere noted: HPI Patient is a 28-year-old female with seizures who presents with multiple seizures today. The patient had her fourth baby 1 month ago. She had no preeclampsia or eclampsia with that . However she had multiple seizures today. I saw her earlier for seizures in the emergency department. She says that she used to be on Keppra. She does not currently have a primary doctor. negative unless noted otherwise in [facility] Objective Exam Vitals Vital Signs Date Temp Pulse Resp B/P (MAP) Pulse Ox O2 O2 Flow FiO2 Time Delivery Rate 02/09/19 97.2 57 18 107/68 96 Room Air 07:51 (81) Exam PE: Gen Appearance: No Apparent Distress HEENT: Normocephalic Cardiovascular: Regular rate Lungs: Clear bilaterally Abdomen: Soft Extremities: Dry NE: The patient was alert and oriented. Language was normal. Fund of knowledge was normal. Pupils were equal and reactive to light. There was no afferent pupillary defect. Visual rodriguez were normal. Funduscopic examination was limited. Extra-ocular movements were full. Ptosis was absent. There was no nystagmus. Facial sensation was normal. Face was symmetric with normal strength. Hearing was intact. Palate movements were normal. Neck strength was normal. There was normal tongue bulk and speed of movement. Tone was normal. Muscle bulk was normal. I did not see fasciculations. The pt was generally weak. Vibration sensation was normal. Temperature and pinprick sensation was normal. Rapid alternating movements were normal. There was no dysmetria. There was no intention tremor. Gait was deferred due to bedrest. Arm and leg reflexes were 2+ and symmetric. Vann's sign was absent. Plantar responses were flexor. Results Result Diagram: 02/08/197 02/08/19 2307 Results 24hrs Laboratory Tests Test 02/08/19 23:07 02/09/19 05:20 02/09/19 09:05 White Blood Count 9.7 # Red Blood Count 4.66 Hemoglobin 12.0 Hematocrit 38.0 Mean Corpuscular Volume 81.5 L Mean Corpuscular Hemoglobin 25.8 L Mean Corpuscular 31.6 L Hemoglobin Concent Red Cell Distribution Width 17.3 H Platelet Count 243 Mean Platelet Volume 11.7 H Immature Granulocytes % 0.200 Neutrophils % 59.9 Lymphocytes % 31.3 Monocytes % 7.0 Eosinophils % 1.1 Basophils % 0.5 Nucleated Red Blood Cells % 0.0 Immature Granulocytes # 0.020 Neutrophils # 5.8 Lymphocytes # 3.0 H Monocytes # 0.7 Eosinophils # 0.1 Basophils # 0.1 Nucleated Red Blood Cells # 0.0 Sodium Level 139 Potassium Level 3.5 Chloride Level 105 Carbon Dioxide Level 27 Anion Gap 7 Blood Urea Nitrogen 14 Creatinine 0.83 Est Glomerular Filtrat > 60 Rate mL/min Glucose Level 103 Calcium Level 9.2 Total Bilirubin 1.0 Direct Bilirubin 0.00 Indirect Bilirubin 1.0 Aspartate Amino 20 Transf (AST/SGOT) Alanine 14 Aminotransferase (ALT/SGPT) Alkaline Phosphatase 80 Total Protein 7.6 Albumin 4.2 Globulin 3.40 H Albumin/Globulin Ratio 1.23 Hemoglobin A1c 5.4 Magnesium Level 2.1 Triglycerides Level 100 Cholesterol Level 191 LDL Cholesterol, Calculated 128 HDL Cholesterol 43 Cholesterol/HDL Ratio 4.4 Thyroid Stimulating Pending Hormone (TSH) Urine Color YELLOW Urine Clarity SLIGHTLY CLOUDY A Urine pH 6.0 Urine Specific [place] 1.029 Urine Ketones NEGATIVE Urine Nitrite NEGATIVE Urine Bilirubin NEGATIVE Urine Urobilinogen 1+ H Urine Leukocyte Esterase 2+ H Urine Microscopic RBC 2 Urine Microscopic WBC 8 H Urine Squamous FEW Epithelial Cells Urine Bacteria FEW A Urine Mucus MANY A Urine Hemoglobin NEGATIVE Urine Glucose NEGATIVE Urine Total Protein NEGATIVE Urine Opiates Screen Negative Urine Barbiturates Negative Urine Amphetamines Screen Negative Urine Benzodiazepines Screen Negative Urine Cocaine Screen Negative Urine Cannabinoids Positive Past Medical History reviewed Medical History: no pertinent history, pancreatitis Home Meds Discontinued Reported Medications Calcium Carbonate* (Calcium Carbonate*) 600 MG Ca Tab, 600 MG PO, TAB 01/08/19 Ferrous Sulfate* (Ferrous Sulfate*) 325 Mg Tabec, 325 MG PO DAILY, TAB 01/28/15 Vit/Fe Fumarate/Fa* ( Vitamin Tablet*) 1 Tab Tablet, 1 TAB PO DAILY, TAB 01/28/15 Discontinued Scripts Ibuprofen* (Ibuprofen*) 600 Mg Tablet, 600 MG PO Q6, #60 TAB 0 Refills Prov:AMAN MEREDITH MD 01/09/19 Medications Current Medications IV Flush (NS 3 ml) 3 ml PER PROTOCOL IV ; Start 02/08/19 at 23:30 Ondansetron HCl (Zofran Inj) 4 mg Q6H PRN IV NAUSEA/VOMITING; Start 02/08/19 at 23:30 Acetaminophen (Tylenol Tab) 650 mg Q6H PRN PO .PAIN 1-3 OR TEMP; Start 02/08/19 at 23:30 Docusate Sodium (Colace) 100 mg Q12H PRN PO .CONSTIPATION; Start 02/08/19 at 23:30 Bisacodyl (Dulcolax) 5 mg DAILY PRN PO .CONSTIPATION; Start 02/08/19 at 23:30 Lorazepam (Ativan) 1 mg Q1H PRN IV SEIZURES; Start 02/08/19 at 23:30 Levetiracetam (Keppra) 1,000 mg BID PO Last administered on 02/09/19at 08:56; Admin Dose 1,000 MG; Start 02/09/19 at 09:00 Ceftriaxone Sodium 50 ml @ 100 mls/hr Q24H IVPB Last administered on 02/09/19at 11:44; Admin Dose 100 MLS/HR; Start 02/09/19 at 10:30 Allergies: Coded Allergies: No Known Allergy (Unverified , 02/08/19) Past Surgical History reviewed Social History reviewed Alcohol Use: none Smoking Status: Current every day smoker Drug Use: none JENNIFER VARGHESE NP February 09, 2019 13:42
[2019-02-09 16:22] VITALS: BP 119/67; PULSE 84; RESP 18
[2019-02-09 19:40] VITALS: BP 111/75; PULSE 65; RESP 20
[2019-02-09] MEDS: LEVETIRACETAM 500 MG TAB PO SCH (21:20)
[2019-02-10 02:00] VITALS: BP 109/61; PULSE 64; RESP 20
[2019-02-10] MEDS: NACL 0.9% 3 ML SYG IV SCH (06:12)
[2019-02-10 07:34] VITALS: BP 107/65; PULSE 59; RESP 15
[2019-02-10] MEDS: LEVETIRACETAM 500 MG TAB PO SCH ×2 (09:27→21:50)
[2019-02-10] MEDS: CEFTRIAXONE 1 GM/50 ML (PMX) 50 ML IVPB SCH (10:37)
--- NOTE | 2019-02-10 12:07 | PN ---
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 She had been on Keppra for a while but this was allowed to run out and she had been off of treatment for a number of years. She has recently had a baby has had interrupted sleep and had seizure activity. She is being reintroduced to Keppra although it should be noted she is breast-feeding and hence intentions to breast-feed. Neurology consult will guide us regarding discharge planning. (2) History of CVA (cerebrovascular accident) Onset Date: ~ 02/2012 Status: Chronic Comment: Noted. Result Diagram: 02/08/19 2307 02/08/19 2307 Subjective 24 Hr Interval Summary Free Text/Dictation Patient reports no further seizure activity. Constitutional: no complaints Respiratory: no complaints Cardiovascular: no complaints Neurologic: no complaints Exam/Review of Systems Exam Vitals Vital Signs Date Temp Pulse Resp B/P (MAP) Pulse Ox O2 O2 Flow FiO2 Time Delivery Rate 02/10/19 98.2 59 15 107/65 100 Room Air 07:34 (79) Intake and Output 02/09/19 02/09/19 02/10/19 1515:00 23:00 07:00 IntakeIntake Total 650 ml 1260 ml 120 ml BalanceBalance 650 ml 1260 ml 120 ml Exam Pleasant female lying in bed Head: normocephalic, atraumatic Cardiovascular: regular rate and rhythm, nl pulses Gastrointestinal: soft, nl liver, spleen, non-tender Neurological: LIFE TEACHER II-XII intact, nl mental status, nl speech, nl strength Medications Medication Current Medications IV Flush (NS 3 ml) 3 ml PER PROTOCOL IV Last administered on 02/10/19at 06:12; Admin Dose 3 ML; Start 02/08/19 at 23:30 Ondansetron HCl (Zofran Inj) 4 mg Q6H PRN IV NAUSEA/VOMITING; Start 02/08/19 at 23:30 Acetaminophen (Tylenol Tab) 650 mg Q6H PRN PO .PAIN 1-3 OR TEMP; Start 02/08/19 at 23:30 Docusate Sodium (Colace) 100 mg Q12H PRN PO .CONSTIPATION; Start 02/08/19 at 23:30 Bisacodyl (Dulcolax) 5 mg DAILY PRN PO .CONSTIPATION; Start 02/08/19 at 23:30 Lorazepam (Ativan) 1 mg Q1H PRN IV SEIZURES; Start 02/08/19 at 23:30 Ceftriaxone Sodium 50 ml @ 100 mls/hr Q24H IVPB Last administered on 02/10/19at 10:37; Admin Dose 100 MLS/HR; Start 02/09/19 at 10:30 Levetiracetam (Keppra) 500 mg BID PO Last administered on 02/10/19at 09:27; Admin Dose 500 MG; Start 02/09/19 at 21:00 GABRIELA BONE MD Feb 10, 2019 12:07
[2019-02-10 20:42] VITALS: BP 114/64; PULSE 67; RESP 18
[2019-02-11 01:55] VITALS: BP 105/57; PULSE 60; RESP 18
[2019-02-11] MEDS: NACL 0.9% 3 ML SYG IV SCH (06:28)
[2019-02-11 07:43] VITALS: BP 101/69; PULSE 62; RESP 16
--- NOTE | 2019-02-11 08:54 | CONS ---
Assessment/Plan Assessment/Plan Assessment/Plan (Recall) 28 yo F with hx of CVA c/b epilepsy, eclampsia and other comorbidities who presents for evaluation of breakthrough seizures... for which neurology is consulted. She endorses medication noncompliance. She additionally is noted to have a UTI, a likely contributor. MRI brain is notable for L frontal encephalomalacia...the likely underlying ictal focus.. UDS + marijuana P: Continue Keppra 500mg BID for seizure ppx...indefinitely Ativan IV PRN seizure > 5 min or for cluster Other medical management and supportive care per primary Will follow clinically Consultation Date/Type/Reason Admit Date/Time February 08, 2019 at 23:19 Type of Consult Neurology Reason for Consultation seizures Requesting Provider: RETA SPARROW Date/Time of Note DATE: 02/11/19 TIME: 08:53 24 HR Interval Summary Free Text/Dictation Continues acute care; tolerating Keppra w/o complaints. Exam/Review of Systems Exam Vitals Vital Signs Date Temp Pulse Resp B/P (MAP) Pulse Ox O2 O2 Flow FiO2 Time Delivery Rate 02/11/19 97.8 62 16 101/69 100 Room Air 07:43 (80) Intake and Output 02/10/19 02/10/19 02/11/19 1515:00 23:00 07:00 IntakeIntake Total 50 ml 800 ml 660 ml BalanceBalance 50 ml 800 ml 660 ml Exam PE: Gen Appearance: No Apparent Distress HEENT: Normocephalic Cardiovascular: Regular rate Lungs: Clear bilaterally Abdomen: Soft Extremities: Dry NE: The patient was alert and oriented. Language was normal. Fund of knowledge was normal. PFunduscopic examination was limited. Extra-ocular movements were full. Ptosis was absent. There was no nystagmus. Facial sensation was normal. Face was grossly symmetric with normal strength. Hearing was intact. Palate movements were normal. Neck strength was normal. There was normal tongue bulk and speed of movement. Tone was normal. Muscle bulk was normal. I did not see fasciculations. Arms and legs were strong. Vibration sensation was normal. Temperature and pinprick sensation was normal. Rapid alternating movements were normal. There was no dysmetria. There was no intention tremor. Gait was deferred due to bedrest. Arm and leg reflexes were 2+ and symmetric. Vann's sign was absent. Plantar responses were flexor. Results Result Diagram: 02/08/19 2307 02/08/19 230 Results 24hrs Laboratory Tests Test 02/10/19 14:50 Urine Color YELLOW Urine Clarity SLIGHTLY CLOUDY A Urine pH 7.0 Urine Specific [place] 1.013 Urine Ketones NEGATIVE Urine Nitrite NEGATIVE Urine Bilirubin NEGATIVE Urine Urobilinogen NEGATIVE Urine Leukocyte Esterase 3+ H Urine Microscopic RBC 1 Urine Microscopic WBC 3 Urine Squamous Epithelial Cells FEW Urine Transitional Epithelial Cells FEW A Urine Hemoglobin NEGATIVE Urine Glucose NEGATIVE Urine Total Protein NEGATIVE Medications Medication Current Medications IV Flush (NS 3 ml) 3 ml PER PROTOCOL IV Last administered on 02/11/19at 06:28; Admin Dose 3 ML; Start 02/08/19 at 23:30 Ondansetron HCl (Zofran Inj) 4 mg Q6H PRN IV NAUSEA/VOMITING; Start 02/08/19 at 23:30 Acetaminophen (Tylenol Tab) 650 mg Q6H PRN PO .PAIN 1-3 OR TEMP; Start 02/08/19 at 23:30 Docusate Sodium (Colace) 100 mg Q12H PRN PO .CONSTIPATION; Start 02/08/19 at 23:30 Bisacodyl (Dulcolax) 5 mg DAILY PRN PO .CONSTIPATION; Start 02/08/19 at 23:30 Lorazepam (Ativan) 1 mg Q1H PRN IV SEIZURES; Start 02/08/19 at 23:30 Ceftriaxone Sodium 50 ml @ 100 mls/hr Q24H IVPB Last administered on 02/10/19at 10:37; Admin Dose 100 MLS/HR; Start 02/09/19 at 10:30 Levetiracetam (Keppra) 500 mg BID PO Last administered on 02/10/19at 21:50; Admin Dose 500 MG; Start 02/09/19 at 21:00 YOGESH BOSE Feb 11, 2019 08:54
[2019-02-11] MEDS: LEVETIRACETAM 500 MG TAB PO SCH (09:56)
[2019-02-11] MEDS: CEFTRIAXONE 1 GM/50 ML (PMX) 50 ML IVPB SCH (09:58)
--- NOTE | 2019-02-11 12:29 | DS ---
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 Marks; gynecology-Dr. Hannah Galvin Brain MRI IMPRESSION: 1. No acute intracranial abnormality. 2. Focal cystic encephalomalacia with surrounding gliosis and hemosiderin staining in the left frontal lobe. 3. Small areas of cortical encephalomalacia in the parasagittal parietal lobes left being more prominent. 4. No abnormal leptomeningeal, intraparenchymal or dural enhancement. CT brain IMPRESSION: 1. Negative for intracranial hemorrhage or other acute process. 2. Left frontal lobe encephalomalacia compatible with previous ischemic insult or remote injury. Hx of Present Illness HPI Patient is a 28-year-old female with seizures who presents with multiple seizures today. The patient had her fourth baby 1 month ago. She had no preeclampsia or eclampsia with that . However she had multiple seizures today. I saw her earlier for seizures in the emergency department. She says that she used to be on Keppra. She does not currently have a primary doctor. Hx of Present Illness cc: recurrent seizures This is a 28-year-old female with a past medical 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 Patient presents with her . Patient reported that in the morning at around 6:00 she had an initial seizure followed by another one at 11 AM. She had total of 4 in the day and came to the emergency department. She was given Ativan and discharged. Patient returned home and had an additional 2 seizures with convulsions and therefore she returned to the emergency department. She does have a history of having seizures in the past approximately 6 years ago due to eclampsia during . She was on Keppra 1000 mg twice daily in the past. She had not been taking it over the recent past as she was and just recently delivered a child approximately 1 month ago. Patient is a daily marijuana smoker, she did not smoke at all yesterday. Patient does have a history of a stroke that resulted in left-sided weakness however all of her function has since then returned. Her stroke was in 2011. She does have a slight eyelid ptosis on the right compared to the left this is chronic. She is currently not breast- feeding. She does report a headache at the current time. did report that when the patient had seizure she also did have a postictal period as well as urinary incontinence. Hx of Present Illness 28 yo F with hx of seizures, CVA, eclampsia, pancreatitis who presented to the ED for evaluation of seizures. History was obtained from pt, HCP and chart review. She reportedly was witnessed to have 3 seizure episodes yesterday with jerking head movements and generalized convulsion. In May 2012, she had eclampsia during her and at 33weeks, had to undergo an emergency c/s d/t seizure activity. It is unclear if she was started on medications at that time. Later on, in early 2012, she had further seizure episodes for which she presented to [facility] and was started on Keppra. Following the delivery of her second child, she stopped taking the medication as she was . She has not restarted Keppra or followed up with a neurologist. She reportedly has not had any seizure activity until today. She currently endorses generalized weakness and lethargy. It is additionally elsewhere noted: HPI Patient is a 28-year-old female with seizures who presents with multiple seizures today. The patient had her fourth baby 1 month ago. She had no preeclampsia or eclampsia with that . However she had multiple seizures today. I saw her earlier for seizures in the emergency department. She says that she used to be on Keppra. She does not currently have a primary doctor. negative unless noted otherwise in HPI Hx of Present Illness 28y.o x2C/s and x2 presented ED second time on 02/08/19 after she was discharged from ER after emergency measurement for seizure activities PER family member she had x 3 AM on 02/08/19 and at nite had another activity with head twisted to side and whole body had jerky movement. no tongue bite noted or no foamy mouth. In 2011jun 06 she underwent to emergency c/s at 33weeks due to convulsion ,due to eclampsia f/b Rt hemiparesis/hemiplegia? which required rehabilitation and fully recovered.,of motion several month after the ,she experienced seizure activities which brought her to ED her at [facility] in early 2012,and placed on keppra. but she discontinue medication after 2nd delivery due to breast feeding. no seizure activities up until today without any medications.Had . post ictal pu lsating headache and vomit never had neurologic evaluation headache vomit Hospital Course Charsudha 28-year-old woman who was admitted with recurrent seizures. She has been stabilized and is done well. Please note there was concern for urinary tract infection this was mixed gram-positive organisms. She is now stable for discharge on antiepileptic medications, please see neurology recommendations immediately below P: Continue Keppra 500mg BID for seizure ppx...indefinitely Ativan IV PRN seizure > 5 min or for cluster Other medical management and supportive care per primary Will follow clinically Home Meds Discontinued Reported Medications Calcium Carbonate* (Calcium Carbonate*) 600 MG Ca Tab, 600 MG PO, TAB 01/08/19 Ferrous Sulfate* (Ferrous Sulfate*) 325 Mg Tabec, 325 MG PO DAILY, TAB 01/28/15 Vit/Fe Fumarate/Fa* ( Vitamin Tablet*) 1 Tab Tablet, 1 TAB PO DAILY, TAB 01/28/15 Discontinued Scripts Ibuprofen* (Ibuprofen*) 600 Mg Tablet, 600 MG PO Q6, #60 TAB 0 Refills Prov:AMAN MEREDITH MD 01/09/19 Follow-up Plan Primary care physician through [facility] [place] and their referral to in plan neurology Primary Care Provider Care Physician No Primary Time spent on discharge: > 30 minutes Pending Labs Laboratory Tests Test 02/10/19 14:50 Urine Color YELLOW (YELLOW) Urine Clarity SLIGHTLY CLOUDY (CLEAR) Urine pH 7.0 (5.0-9.0) Urine Specific [place] 1.013 (1.003-1.030) Urine Ketones NEGATIVE mg/dL (NEGATIVE) Urine Nitrite NEGATIVE mg/dL (NEGATIVE) Urine Bilirubin NEGATIVE mg/dL (NEGATIVE) Urine Urobilinogen NEGATIVE mg/dL (NEGATIVE) Urine Leukocyte Esterase 3+ Dipesh/ul (NEGATIVE) Urine Microscopic RBC 1 /HPF (0-5) Urine Microscopic WBC 3 /HPF (0-5) Urine Squamous Epithelial Cells FEW /HPF (FEW) Urine Transitional Epithelial Cells FEW /HPF (NONE SEEN) Urine Hemoglobin NEGATIVE mg/dL (NEGATIVE) Urine Glucose NEGATIVE mg/dL (NEGATIVE) Urine Total Protein NEGATIVE mg/dl (NEGATIVE) GABRIELA BONE MD Feb 11, 2019 12:29
--- NOTE | 2019-02-11 12:30 | PDOCDIS ---
Discharge Instructions DIAGNOSIS Discharge Diagnosis Current seizure disorder; history of eclampsia in 2012 with left frontal neurologic injury; marijuana usage; history of CONDITION [id number] Patient Condition: [id number] Good HOME CARE INSTRUCTIONS: [id number] Diet Instructions: [id number] Regular ACTIVITY: [id number] Activity Restrictions: [id number] Slowly Increase Activity Rest between Activity Avoid heavy lifting Do not Drive Do not operate Machinery Do not operate Power Tool FOLLOW UP/APPOINTMENTS Follow-up Plan Primary care physician through health care [place] and their referral to in plan neurology GABRIELA BONE MD Feb 11, 2019 12:30
[2019-02-11] MEDS ORDERED: LEVE-5 PO (12:31)
== END 2019-02-11 13:35 | disposition home or self-care (01) | DRG 101 ==
LOC: E/R 22:47 → MS1 23:19
PROVIDERS: ADMIT Family Medicine; ATTEND Family Medicine
DX: G40.909 Epilepsy, unspecified, not intractable, without status epilepticus (principal); N39.0 Urinary tract infection, site not specified; Z91.14 Patient's other noncompliance with medication regimen; F12.90 Cannabis use, unspecified, uncomplicated; Z86.73 Personal history of transient ischemic attack (TIA), and cerebral infarction without residual deficits
CPT/HCPCS: 36415; 70450; 70553; 80053; 80061; 80177; 80307; 81001; 83036; 83735; 84443; 85025; 87086; 95819; 96374; J0696; J1953